=== PATIENT | female | born 1970 | race Caucasian/White ===

== ENCOUNTER 2016-12-03 15:27 | Emergency (ER) | payer MEDICARE, OTHER ==
[2016-12-03 15:51] VITALS: RESP 18
[2016-12-03] MEDS ORDERED: SODIUM CHLORIDE 0.9% 1,000 ML IV ONE (16:21)
--- NOTE | 2016-12-03 16:29 | ED ---
General Adult HPI - General Chief complaint: Upper Respiratory Infection Stated complaint: Chest Pain Time Seen by Provider: 12/03/16 15:58 Source: patient, family, RN notes reviewed Mode of arrival: ambulatory Limitations: no limitations - History of Present Illness Initial comments: Chief complaint and history of present illness a 38-year-old female here with family. The patient reports that she uses medical marijuana for anxiety and help her sleep. She obtained some from a friend which did the opposite effect on her. She was also trying some moonshine sips several times a day 2-3 days ago in order to help her sleep. Her brother reports she has not slept for 3 days. On social media she's asking questions and doing things that are irregular. Her father has long since but she thinks he is currently in the hospital somewhere. She admits that she doesn't know why she is doing that. She is complaining of some chest pressure and productive cough brown in color. Denies fever. No immunizations. Not taking any current medications. - Related Data Home Medications Medication Instructions Recorded Confirmed Naproxen Sodium [Aleve] 220 mg PO Q12H PRN 12/03/16 12/03/16 diphenhydrAMINE HCL [Benadryl] 25 - 50 mg PO Q6H PRN 12/03/16 12/03/16 Allergies Allergy/AdvReac Type Severity Reaction Status Date / Time codeine Allergy Unknown Verified 12/03/16 16:29 Review of Systems ROS Statement: Those systems with pertinent positive or pertinent negative responses have been documented in the HPI. Review of systems. Patient reads lips very well. No headache or visual acuity changes she has a chest pressure but no radiation discomfort productive brown colored cough. Vomited several times anterior muscles of her abdomen from vomiting causes discomfort, chronic loose stool. No neuro deficits. The patient is an she admits hallucinating having thoughts that are irregular. Does not mention suicide or depression. Brother reports she does seem to be unhappy though her 15-year-old daughter is starting to date all systems reviewed past medical problems patient states she is to have hypertension does not take medications for it currently pressure 164/86. Patient will be referred back to a or her family physician for further evaluation in the next week to 2 weeks. She also reports a history of asthma. No other medical problems. ALLERGIES to codeine. Surgeries include , right hand surgery, tonsillectomy and adenoids and soft collar removed. And hysterectomy. Family history prostate and breast cancer. Other members of COPD and CHF. A 1 last time 2 days ago. She does drink alcohol last time 2 days ago. ROS Other: All systems not noted in ROS Statement are negative. Past Medical History Past Medical History: No Reported History History of Any Multi-Drug Resistant Organisms: None Reported Past Surgical History: No Surgical Hx Reported Past Psychological History: Anxiety, Depression, Panic Disorder Smoking Status: Never smoker Past Alcohol Use History: Heavy Past Drug Use History: Marijuana General Exam - General Exam Comments Initial Comments: General: The patient is awake and alert, in no distress, and does not appear acutely ill. Patient has no obvious outward complaints while emergency room but she is here because family reports she's hearing saying and doing things and thinking things that are totally irregular for her. Patient states she obtained some marijuana from a friend. She does have a medical marijuana card in order to help her sleep but intermittently sleepy harder. Vital signs temp 97.6 pulse 102 respiratory rate 18 pulse ox on percent room air blood pressure 164/86. Elevated systolic diastolic noted patient will be followed up by her family physician. Eye: Pupils are equal, round and reactive to light, extra-ocular movements are intact ; there is normal conjunctiva bilaterally. No signs of icterus. Ears, nose, mouth and throat: Evidence of surgery on her soft palate There are moist mucous membranes and no oral lesions. Neck: The neck is supple, there is no tenderness , no meningeal irritation, no stiff neck. Thyroid not enlarged, no anterior cervical lymphadenopathy. Cardiovascular: There is a regular rate and rhythm. No murmur, rub or gallop is appreciated. Respiratory: Lungs are clear to auscultation, respirations are non-labored, breath sounds are equal. No wheezes, stridor, rales, or rhonchi. Gastrointestinal: Soft, non-distended, non-tender abdomen without masses or organomegaly noted. There is no rebound or guarding present. No CVA tenderness. Bowel sounds are unremarkable. Complains of vomiting several times muscle wall discomfort but no rebound or referred pain. Normoactive bowel sounds. Back: There is no tenderness to palpation in the midline. There is no obvious deformity. No rashes noted. Musculoskeletal: Normal ROM, no tenderness, There is no pedal edema. There is no calf tenderness or swelling. Sensation intact. Pulses equal bilaterally 2+. Neurological: CN II-XII intact, There are no obvious motor or sensory deficits. Coordination appears grossly intact. Speech is normal. No focal or lateralizing findings Skin: Skin is warm and dry and no rashes or lesions are noted. Psychiatric: Cooperative, appropriate mood & affect, normal judgment. Family reports she is hallucinating. Making statements concerning her father who has since , asking what hospital he is currently in. Family reports she's never done this before. Limitations: no limitations Course Vital Signs 12/03/16 12/03/16 15:46 20:05 Temperature 97.6 F 97.3 F L Pulse Rate 102 H 66 Respiratory 18 18 Rate Blood Pressure 164/86 130/71 O2 Sat by Pulse 100 97 Oximetry EKG Findings - EKG Comments: EKG Findings:: EKG was done and reviewed at 16 007 showing normal sinus rhythm no acute ST elevation no ectopy no ischemic changes. Rate 90 [place] interval is 134 QRS 78 QT [address] Antonio no old EKG available to compare to. Medical Decision Making - Medical Decision Making Medical decision-making. Patient's white count is elevated at 15,000 hemoglobin 15 hematocrit of 45, potassium 3.0 receiving 30 mEq of Desiree Michael by mouth. BUN 9 creatinine 0.9 the GFR greater than 60. Glucose 106. Urine is clean no signs of infection drug triage positive for marijuana which patient states she has a medical card for. Cardiac enzymes within normal limits. X-ray of the chest was done because of the patient's complaint of chest discomfort and productive cough greenish color. The radiologist's impression is there is no focal airspace opacity, pleural effusion, or pneumothorax seen. Can't axilla size within normal limits. The osseous structures are intact. Impression; no acute cardiopulmonary process. No significant change from prior. As read by Dr. rosas Patient also had CT of the brain done because of acute mental changes. The radiologist's final impression is there is no acute intracranial hemorrhage, mass effect, or midline shift identified. The ventricles and sulci are within normal limits in size. The globes are intact and the visualized sinuses are clear. Impression; no acute intracranial hemorrhage, mass effect or midline shift seen. As read by Dr. rosas Per brother patient has had in his estimation history of depression. Possibility of a bipolar disorder with manic episode at this time. Without thoughts of harming herself was discussed. Patient will have an evaluation by the psychiatric department. I was speaking with the patient concerning her mood swings and she stated to me that she does have a history and diagnosis of bipolar disorder and has been on medications in the past. Currently not taking any medications. She uses the marijuana first mood swings. She does want to speak to a psychiatric nurse. Denying any thoughts of harming herself or anyone else. Admits she's had episodes of depression and manic phases in the past She was evaluated by the psychiatric nurse she spoke to the psychiatrist. At this time the patient be discharged home with medications to help her sleep. She has an the past seen [facility] be advised to follow-up with them for reevaluation and efforts to help her with her bipolar disorder. Patient being discharged to care of her brother - Lab Data Result diagrams: 12/03/16 16:55 12/03/16 16:55 Lab Results 12/03/16 12/03/16 12/03/16 Range/Units 14:05 16:55 16:55 WBC 15.1 H (3.8-10.6) k/uL RBC 5.06 (3.80-5.40) m/uL Hgb 15.3 (11.4-16.0) gm/dL Hct 45.1 (34.0-46.0) % MCV 89.1 (80.0-100.0) fL MCH 30.2 (25.0-35.0) pg MCHC 33.9 (31.0-37.0) g/dL RDW 12.9 (11.5-15.5) % Plt Count 281 (150-450) k/uL Neutrophils % 79 % Lymphocytes % 14 % Monocytes % 5 % Eosinophils % 0 % Basophils % 1 % Neutrophils # 11.9 H (1.3-7.7) k/uL Lymphocytes # 2.1 (1.0-4.8) k/uL Monocytes # 0.8 (0-1.0) k/uL Eosinophils # 0.1 (0-0.7) k/uL Basophils # 0.1 (0-0.2) k/uL Sodium (137-145) mmol/L Potassium (3.5-5.1) mmol/L Chloride (98-107) mmol/L Carbon Dioxide (22-30) mmol/L Anion Gap mmol/L BUN (7-17) mg/dL Creatinine (0.52-1.04) mg/dL Est GFR (MDRD) Af Amer (>60 ml/min/1.73 sqM) Est GFR (MDRD) Non-Af (>60 ml/min/1.73 sqM) Glucose (74-99) mg/dL Calcium (8.4-10.2) mg/dL Total Bilirubin (0.2-1.3) mg/dL AST (14-36) U/L ALT (9-52) U/L Alkaline Phosphatase (38-126) U/L Total Creatine Kinase 181 H (30-135) U/L CK-MB (CK-2) 2.4 (0.0-2.4) ng/mL CK-MB (CK-2) Rel Index 1.3 Troponin I 0.025 (0.000-0.034) ng/mL Total Protein (6.3-8.2) g/dL Albumin (3.5-5.0) g/dL Urine Color Colorless Urine Appearance Clear (Clear) Urine pH 6.5 (5.0-8.0) Ur Specific [place] 1.001 (1.001-1.035) Urine Protein Negative (Negative) Urine Glucose (UA) Negative (Negative) Urine Ketones Negative (Negative) Urine Blood Negative (Negative) Urine Nitrate Negative (Negative) Urine Bilirubin Negative (Negative) Urine Urobilinogen <2.0 (<2.0) mg/dL Ur Leukocyte Esterase Negative (Negative) Urine Opiates Screen Not Detected (NotDetected) Ur Oxycodone Screen Not Detected (NotDetected) Urine Methadone Screen Not Detected (NotDetected) Ur Propoxyphene Screen Not Detected (NotDetected) Ur Barbiturates Screen Not Detected (NotDetected) U Tricyclic Antidepress Not Detected (NotDetected) Ur Phencyclidine Scrn Not Detected (NotDetected) Ur Amphetamines Screen Not Detected (NotDetected) U Methamphetamines Scrn Not Detected (NotDetected) U Benzodiazepines Scrn Not Detected (NotDetected) Urine Cocaine Screen Not Detected (NotDetected) U Marijuana (THC) Screen Detected H (NotDetected) 02/19/17 Range/Units 16:55 WBC (3.8-10.6) k/uL RBC (3.80-5.40) m/uL Hgb (11.4-16.0) gm/dL Hct (34.0-46.0) % MCV (80.0-100.0) fL MCH (25.0-35.0) pg MCHC (31.0-37.0) g/dL RDW (11.5-15.5) % Plt Count (150-450) k/uL Neutrophils % % Lymphocytes % % Monocytes % % Eosinophils % % Basophils % % Neutrophils # (1.3-7.7) k/uL Lymphocytes # (1.0-4.8) k/uL Monocytes # (0-1.0) k/uL Eosinophils # (0-0.7) k/uL Basophils # (0-0.2) k/uL Sodium 145 (137-145) mmol/L Potassium 3.0 L* (3.5-5.1) mmol/L Chloride 106 (98-107) mmol/L Carbon Dioxide 25 (22-30) mmol/L Anion Gap 14 mmol/L BUN 9 (7-17) mg/dL Creatinine 0.90 (0.52-1.04) mg/dL Est GFR (MDRD) Af Amer >60 (>60 ml/min/1.73 sqM) Est GFR (MDRD) Non-Af >60 (>60 ml/min/1.73 sqM) Glucose 106 H (74-99) mg/dL Calcium 9.2 (8.4-10.2) mg/dL Total Bilirubin 0.7 (0.2-1.3) mg/dL AST 23 (14-36) U/L ALT 31 (9-52) U/L Alkaline Phosphatase 77 (38-126) U/L Total Creatine Kinase (30-135) U/L CK-MB (CK-2) (0.0-2.4) ng/mL CK-MB (CK-2) Rel Index Troponin I (0.000-0.034) ng/mL Total Protein 7.5 (6.3-8.2) g/dL Albumin 4.5 (3.5-5.0) g/dL Urine Color Urine Appearance (Clear) Urine pH (5.0-8.0) Ur Specific [place] (1.001-1.035) Urine Protein (Negative) Urine Glucose (UA) (Negative) Urine Ketones (Negative) Urine Blood (Negative) Urine Nitrate (Negative) Urine Bilirubin (Negative) Urine Urobilinogen (<2.0) mg/dL Ur Leukocyte Esterase (Negative) Urine Opiates Screen (NotDetected) Ur Oxycodone Screen (NotDetected) Urine Methadone Screen (NotDetected) Ur Propoxyphene Screen (NotDetected) Ur Barbiturates Screen (NotDetected) U Tricyclic Antidepress (NotDetected) Ur Phencyclidine Scrn (NotDetected) Ur Amphetamines Screen (NotDetected) U Methamphetamines Scrn (NotDetected) U Benzodiazepines Scrn (NotDetected) Urine Cocaine Screen (NotDetected) U Marijuana (THC) Screen (NotDetected) Disposition Clinical Impression: Bipolar 1 disorder Disposition: HOME SELF-CARE Condition: Fair Instructions: Bipolar Disorder (ED) Additional Instructions: Used a sleep medication provided. Follow-up with family physician and community mental health for further evaluation. Return emergency room as needed Time of Disposition: 21:30
[2016-12-03 17:06] LABS: Basophils # (A) 0.1 k/uL (0-0.2); Basophils % (A) 1 %; CH 30.9; CHCM 34.9; Eosinophils # (A) 0.1 k/uL (0-0.7); Eosinophils % (A) 0 %; HCT 45.1 % (34.0-46.0); HDW 2.49; HGB 15.3 gm/dL (11.4-16.0); Luc # (Auto) 0.17; Luc % (Auto) 1; Lymphocytes # (A) 2.1 k/uL (1.0-4.8); Lymphocytes % (A) 14 %; MCH 30.2 pg (25.0-35.0); MCHC 33.9 g/dL (31.0-37.0); MCV 89.1 fL (80.0-100.0); Mean Platelet Volume 7.4; Monocytes # (A) 0.8 k/uL (0-1.0); Monocytes % (A) 5 %; Neutrophils # (A) 11.9 k/uL (1.3-7.7); Neutrophils % (A) 79 %; RBC 5.06 m/uL (3.80-5.40); RDW 12.9 % (11.5-15.5); WBC 15.1 k/uL (3.8-10.6)
[2016-12-03 17:07] LABS: Appearance,Urine Clear (Clear); Bilirubin,Urine Negative (Negative); Glucose,Urine (UA) Negative (Negative); Ketones,Urine Negative (Negative); Leukocyte Esterase,Urine Negative (Negative); Nitrite,Urine Negative (Negative); PH, Urine 6.5 (5.0-8.0); Protein,Urine Negative (Negative); Specific Gravity,Urine 1.001 (1.001-1.035); UA Billing (MACRO vs. MICRO) CHEM; Urobilinogen,Urine <2.0 mg/dL (<2.0)
[2016-12-03 17:16] LABS: ALT 31 U/L (9-52); AST 23 U/L (14-36); Alkaline Phosphatase 77 U/L (38-126); Anion Gap 14 mmol/L; Blood Urea Nitrogen 9 mg/dL (7-17); Calcium 9.2 mg/dL (8.4-10.2); Carbon Dioxide 25 mmol/L (22-30); Chloride 106 mmol/L (98-107); Glucose 106 mg/dL (74-99); Non-African American GFR(MDRD) >60 (>60 ml/min/1.73 sqM); Sodium 145 mmol/L (137-145); Total Bilirubin 0.7 mg/dL (0.2-1.3); Total Protein 7.5 g/dL (6.3-8.2)
--- NOTE | 2016-12-03 17:37 | XR ---
EXAMINATION TYPE: XR chest 2V DATE OF EXAM: 12/03/2016 5:29 PM COMPARISON: Chest x-ray July 10, 2013. HISTORY: Altered mental status and weakness. TECHNIQUE: Frontal and lateral views of the chest are obtained. FINDINGS: There is no focal air space opacity, pleural effusion, or pneumothorax seen. The cardiac silhouette size is within normal limits. The osseous structures are intact. IMPRESSION: No acute cardiopulmonary process. No significant change from prior.
[2016-12-03] MEDS ORDERED: POTASSIUM CHLORIDE ER 10 MEQ TAB.ER.PRT PO STA (17:38)
--- NOTE | 2016-12-03 17:38 | CT ---
EXAMINATION TYPE: CT brain wo con DATE OF EXAM: 12/03/2016 5:20 PM COMPARISON: NONE HISTORY: Acute mental changes. CT DLP: 995.50 mGycm. Automated Exposure Control for Dose Reduction was Utilized. TECHNIQUE: CT scan of the head is performed without contrast. FINDINGS: There is no acute intracranial hemorrhage, mass effect, or midline shift identified. The ventricles and sulci are within normal limits in size. The globes are intact and the visualized sin uses are clear. IMPRESSION: No acute intracranial hemorrhage, mass effect, or midline shift is seen.
[2016-12-03 17:42] LABS: Creatine Kinase MB 2.4 ng/mL (0.0-2.4); Troponin I 0.025 ng/mL (0.000-0.034)
[2016-12-03 20:06] VITALS: PULSE 66
[2016-12-03] MEDS ORDERED: ZOLPIDEM 5 MG TAB PO SCH (21:30)
[2016-12-03 21:34] VITALS: BP 138/77; TEMP 99
== END 2016-12-03 21:34 | disposition home or self-care (01) ==
LOC: EC 15:27
DX: F31.9 Bipolar disorder, unspecified (principal); F41.9 Anxiety disorder, unspecified; R11.10 Vomiting, unspecified; F12.90 Cannabis use, unspecified, uncomplicated; Z88.5 Allergy status to narcotic agent
CPT/HCPCS: 36415; 70450; 71020; 80053; 80306; 81003; 82075; 82550; 82553; 84484; 85025; 87086; 93005; 96360; 96361; 99284

== ENCOUNTER 2016-12-04 16:10 | Inpatient (IN) | payer MEDICAID, MEDICARE, OTHER ==
--- NOTE | 2016-12-04 17:08 | ED ---
Psych HPI - General Source: family, RN notes reviewed Mode of arrival: ambulatory <Keke Wolfe - Last Filed: 12/04/16 19:47> <Jordy Antonio - Last Filed: 12/04/16 22:34> - General Chief Complaint: Psychiatric Symptoms Stated Complaint: Mental Health Time Seen by Provider: 12/04/16 16:46 - History of Present Illness Initial Comments: 46-year-old female presents to the emergency department with a chief complaint of delusions. The patient has been acting appropriately at home. She's been seen in hearing and feeling as if people are breaking into her house. She's become aggressive and punching and hitting [place]. When asked if she suicidal she will use her hand side to side and says yes. Patient states that she is very scared because her ex-boyfriend has recently been released from half-way is causing her increased panic attacks. Patient states she is suffering from bipolar disorder. Patient states uses marijuana to help with her symptoms. Patient states she was concerned due to the continued symptoms and the fear so she thought that she should be evaluated.Patient denies any recent fever, chills , shortness of breath, chest pain, back pain, abdominal pain, nausea vomiting, numbness or tingling, dysuria or hematuria, constipation or diarrhea, headaches or visual changes, or any other current symptoms. (Keke Wolfe) - Related Data Home Medications Medication Instructions Recorded Confirmed Naproxen Sodium [Aleve] 220 mg PO Q12H PRN 12/03/16 12/04/16 diphenhydrAMINE HCL [Benadryl] 25 - 50 mg PO Q6H PRN 12/03/16 12/04/16 Allergies Allergy/AdvReac Type Severity Reaction Status Date / Time codeine Allergy Unknown Verified 12/04/16 16:38 Review of Systems ROS Other: All systems not noted in ROS Statement are negative. <Keke Wolfe - Last Filed: 12/04/16 19:47> ROS Other: All systems not noted in ROS Statement are negative. <Jordy Antonio - Last Filed: 12/04/16 22:34> ROS Statement: Those systems with pertinent positive or pertinent negative responses have been documented in the HPI. Past Medical History Past Medical History: No Reported History Additional Past Medical History / Comment(s): hearing impaired History of Any Multi-Drug Resistant Organisms: None Reported Past Surgical History: No Surgical Hx Reported Past Psychological History: Anxiety, Depression, Panic Disorder Smoking Status: Never smoker Past Alcohol Use History: Heavy Past Drug Use History: Marijuana <Keke Wolfe - Last Filed: 12/04/16 19:47> General Exam Limitations: language barrier <Keke Wolfe - Last Filed: 12/04/16 19:47> <Jordy Antonio - Last Filed: 12/04/16 22:34> - General Exam Comments Initial Comments: General: The patient is awake and alert, in no distress, and does not appear acutely ill. Eye: Pupils are equal, round and reactive to light, extra-ocular movements are intact; there is normal conjunctiva bilaterally. No signs of icterus. Ears, nose, mouth and throat: There are moist mucous membranes and no oral lesions. Neck: The neck is supple, there is no tenderness. Cardiovascular: There is a regular rate and rhythm. No murmur, rub or gallop is appreciated. Respiratory: Lungs are clear to auscultation, respirations are non-labored, breath sounds are equal. No wheezes, stridor, rales, or rhonchi. Gastrointestinal: Soft, non-distended, non-tender abdomen without masses or organomegaly noted. There is no rebound or guarding present. No CVA tenderness. Bowel sounds are unremarkable. Back: There is no tenderness to palpation in the midline. There is no obvious deformity. No rashes noted. Musculoskeletal: Normal ROM, no tenderness, There is no pedal edema. There is no calf tenderness or swelling. Sensation intact. Pulses equal bilaterally 2+. Neurological: CN II-XII intact, There are no obvious motor or sensory deficits. Coordination appears grossly intact. Speech is normal. Skin: Skin is warm and dry and no rashes or lesions are noted. Psychiatric: Cooperative suicidal ideation no plan. No Homicidal ideations (Keke Wolfe) Course <Keke Wolfe - Last Filed: 12/04/16 19:47> <Jordy Antonio - Last Filed: 12/04/16 22:34> Vital Signs 12/04/16 12/04/16 12/04/16 16:23 17:13 18:42 Temperature 99.5 F 98.1 F Pulse Rate 113 H 98 94 Respiratory 20 18 18 Rate Blood Pressure 192/90 157/82 169/83 O2 Sat by Pulse 99 96 94 L Oximetry - Reevaluation(s) Reevaluation #1: 12/04/16 19:48 This case will be signed out to DR. Antonio. (Keke Wolfe) Medical Decision Making <Kkee Wolfe - Last Filed: 12/04/16 19:47> <Jordy Antonio - Last Filed: 12/04/16 22:34> - Medical Decision Making 46-year-old female presents emergency department with a chief complaint of suicidal ideation history of bipolar. This time the patient does not appear to be suffering from any acute medical emergencies. The patient is 28 reevaluated by psychiatry. (Keke Wolfe) Medical decision-making. The patient was in emergency room yesterday admitting to a 3 day manic episode. Requesting only medication to help her sleep. Brother reports she went home took the Ambien provided. 3 hours when his since been up since then. The patient has been throwing things around the house punching [place]. In emergency room the patient had an episode where she ran to the emergency room screaming better but he was trying to kill her the FBI was after her. The patient is not taking medication as she had been prescribed years ago she uses only marijuana. Repeat test today was positive for marijuana no alcohol. Her brother filled out a petition. The patient is being evaluated by the psychiatric nurse. Patient presenting as Bipolar manic. The patient was evaluated by psychiatric nurse. She is signed in voluntarily to go to [address]. Patient received 2 mg of Ativan to help her relax. Dr. Antonio (Jordy Antonio) - Lab Data Lab Results 12/04/16 Range/Units 16:35 Urine Opiates Screen Not Detected (NotDetected) Ur Oxycodone Screen Not Detected (NotDetected) Urine Methadone Screen Not Detected (NotDetected) Ur Propoxyphene Screen Not Detected (NotDetected) Ur Barbiturates Screen Not Detected (NotDetected) U Tricyclic Antidepress Not Detected (NotDetected) Ur Phencyclidine Scrn Not Detected (NotDetected) Ur Amphetamines Screen Not Detected (NotDetected) U Methamphetamines Scrn Not Detected (NotDetected) U Benzodiazepines Scrn Not Detected (NotDetected) Urine Cocaine Screen Not Detected (NotDetected) U Marijuana (THC) Screen Detected H (NotDetected) Disposition <Keke Wolfe - Last Filed: 12/04/16 19:47> <Jordy Antonio - Last Filed: 12/04/16 22:34> Clinical Impression: Bipolar disorder with psychotic features Disposition: TRANSFER TO PSYCH HOSP/UNIT Condition: Serious
[2016-12-04] MEDS ORDERED: LORazepam 2 MG/ML SYRINGE IM STA (21:23)
[2016-12-05] MEDS ORDERED: ACETAMINOPHEN TAB 325 MG TAB PO PRN (01:03)
[2016-12-05] MEDS ORDERED: ZIPRASIDONE 20 MG VIAL IM PRN (01:03)
[2016-12-05] MEDS ORDERED: MAG HYDROX/AL HYDROX/SIMETH 30 ML CUP PO PRN (01:03)
[2016-12-05] MEDS ORDERED: MAGNESIUM HYDROXIDE 2,400 MG/10 ML CUP PO PRN (01:03)
[2016-12-05] MEDS ORDERED: LORazepam 1 MG TAB PO PRN (01:14)
[2016-12-05] MEDS ORDERED: LORazepam 2 MG/ML SYRINGE IM PRN (01:15)
[2016-12-05 09:30] LABS: Basophils % (A) 0 %; CH 30.6; CHCM 33.7; Eosinophils % (A) 0 %; HCT 47.6 % (34.0-46.0); HDW 2.46; HGB 15.4 gm/dL (11.4-16.0); Luc # (Auto) 0.26; Luc % (Auto) 2; Lymphocytes # (A) 1.7 k/uL (1.0-4.8); Lymphocytes % (A) 13 %; MCH 29.5 pg (25.0-35.0); MCHC 32.4 g/dL (31.0-37.0); MCV 91.1 fL (80.0-100.0); Mean Platelet Volume 6.8; Monocytes # (A) 0.7 k/uL (0-1.0); Monocytes % (A) 5 %; Neutrophils # (A) 10.7 k/uL (1.3-7.7); Neutrophils % (A) 80 %; RBC 5.23 m/uL (3.80-5.40); RDW 13.3 % (11.5-15.5); WBC 13.4 k/uL (3.8-10.6); WBC (Perox) 13.74
[2016-12-05 09:55] LABS: ALT 44 U/L (9-52); AST 34 U/L (14-36); Alkaline Phosphatase 79 U/L (38-126); Anion Gap 15 mmol/L; Blood Urea Nitrogen 11 mg/dL (7-17); Calcium 9.7 mg/dL (8.4-10.2); Carbon Dioxide 26 mmol/L (22-30); Chloride 106 mmol/L (98-107); Glucose 135 mg/dL (74-99); Non-African American GFR(MDRD) 59 (>60 ml/min/1.73 sqM); Sodium 147 mmol/L (137-145); Total Bilirubin 0.9 mg/dL (0.2-1.3)
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
--- NOTE | 2016-12-05 20:21 | HP ---
DATE OF ADMISSION: 12/04/2016 CHIEF COMPLAINT: Acute depression. HISTORY OF PRESENT ILLNESS: This is a 46-year-old female who has been deaf since age of 1 years presents to the hospital with worsening depression, alcohol abuse. Patient denying chest pain, shortness breath, nausea, vomiting, abdominal pain, dizziness, lightheadedness, or blurry vision. ALLERGIES: CODEINE UNKNOWN ALLERGIC REACTION. REVIEW OF SYSTEMS: All 14 systems reviewed and negative as above. PAST MEDICAL HISTORY: Significant for: 1. Hypertension. The patient to quit taking medication as her blood pressure is back to normal. 2. Chronic obstructive pulmonary disease. 3. Bipolar disorder. PAST SURGICAL HISTORY: Positive for: 1. Adenoidectomy. 2. Right hand tumor removal. 3. . 4. Hysterectomy. FAMILY HISTORY: Father of natural causes. Mother is alive with chronic obstructive pulmonary disease. SOCIAL HISTORY: Patient said that she has been sober for a long time and returned to drink this week where she was drinking a gallon of liquor and Elisa. Denied tobacco and said that she uses medical marijuana. PHYSICAL EXAMINATION: VITAL SIGNS: Reviewed and stable. HEENT: Atraumatic, normocephalic PERRLA. NECK: Supple, no masses. No thyromegaly. LUNGS: Clear to auscultation bilaterally. HEART: Normal S1, S2. ABDOMEN: Soft, no tenderness, positive bowel sounds in all 4 quadrants. L extremity no edema. PSYCH: Alert, and oriented x3. NEUROLOGICAL: Positive for deafness bilaterally and patient reads lips and very hard of hearing. Cranial nerves otherwise no focal deficits. SKIN: No new rash. Imaging and labs: Reviewed. ASSESSMENT AND PLAN: 1. Alcoholism. Will continue counseling during this hospital stay. 2. Bipolar disorder. Per your recommendation. 3. Hypertension, seems to be controlled. We will monitor, consider blood pressure medication based on the reading. 4. Asthma and chronic obstructive pulmonary disease. Will continue with albuterol as needed during this hospital stay.
[2016-12-05] MEDS ORDERED: risperiDONE ODT 1 MG TAB PO SCH (21:00)
[2016-12-06] MEDS ORDERED: risperiDONE ODT 2 MG TAB PO SCH ×2 (09:00→21:00)
[2016-12-06] MEDS ORDERED: ONDANSETRON 4 MG TAB PO PRN (12:51)
--- NOTE | 2016-12-06 13:10 | P.PN ---
Subjective Principal diagnosis: Interval history: Patient endorses high anxiety ,talked about her extensive history of alcohol use and claimed that she was clean till last week "I WAS NOT DRINKING WHISKEY JUST 70% BETHANY",slept better last night , still having racing thoughts ,paranoia and "I HAVE FEELING THAT SOMETHING BAD WILL HAPPEN TO ME",reports some side-effects from medications"I AM VERY TIRED" PER NURSING STAFF: Patient had emesis last night,not participating in groups , withdrawn ,no interaction with peers ,URINE ANALYSIS:PENDING VITALS :WNL Mental status exam: She is alert and cooperative with the interview. Her speech is fluent, not rapid or pressured. She describes her mood "TIRED AND ANXIOUS". She denies any thoughts of harm to self others. She does not report any hallucinations she reports paranoid thoughts. She does not show any current agitation. Plan: Change Risperdal to 4mg HS ,add Neurontin for anxiety ,Zofran PRN , monitor vitals ,encourage groups participation Objective - Vital Signs Vital signs: Vital Signs Temp 97.4 F L 12/06/16 06:22 Pulse 68 12/06/16 06:22 Resp 16 12/06/16 06:22 BP 130/68 12/06/16 06:22 Pulse Ox 95 12/04/16 23:15 - Labs CBC & Chem 7: 12/05/16 09:01 12/05/16 09:01
[2016-12-06 14:07] LABS: Amorphous Sediment,Urine Rare /hpf; Appearance,Urine Cloudy (Clear); Bacteria,Urine Rare /hpf; Bilirubin,Urine Negative (Negative); Glucose,Urine (UA) Negative (Negative); Ketones,Urine Trace (Negative); Leukocyte Esterase,Urine Small (Negative); Mucus,Urine Many /hpf; Nitrite,Urine Negative (Negative); Particle Count 22295; Protein,Urine 1+ (Negative); RBC,Urine 10 /hpf (0-5); Specific Gravity,Urine 1.027 (1.001-1.035); Squamous Epithelial Cell,Urine 5 /hpf (0-4); UA Billing (MACRO vs. MICRO) MICRO; Urobilinogen,Urine <2.0 mg/dL (<2.0); WBC,Urine 2 /hpf (0-5)
[2016-12-06] MEDS: GABAPENTIN 100 MG CAP PO SCH ×2 (16:03→21:31)
[2016-12-07] MEDS: GABAPENTIN 100 MG CAP PO SCH ×3 (09:41→21:50)
[2016-12-07] MEDS: THIAMINE 100 MG TAB PO SCH (11:54)
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
[2016-12-07] MEDS ORDERED: risperiDONE ODT 1 MG TAB PO SCH (21:00)
[2016-12-08 06:44] VITALS: BP 125/62; PULSE 68; RESP 18; TEMP 97.6
[2016-12-08] MEDS: GABAPENTIN 100 MG CAP PO SCH (08:11)
[2016-12-08] MEDS: THIAMINE 100 MG TAB PO SCH (11:58)
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
--- NOTE | 2016-12-15 12:35 | ED ---
Medical Decision Making - Medical Decision Making Addendum; patient was put in restraints. [id number] encounter. Patient was in danger to herself and to others. The reaction to the intervention patient was uncooperative hostile belligerent, aggressive, combative and restless. The patient's medical and behavioral condition was confused agitated and paranoid. There was need to continue restraints. [id number] evaluation started at . [id number] a evaluation was timed at 2029. Dr. Antonio - Lab Data Result diagrams: 12/05/16 09:01 12/05/16 09:01 Lab Results 12/04/16 Range/Units 16:35 Urine Opiates Screen Not Detected (NotDetected) Ur Oxycodone Screen Not Detected (NotDetected) Urine Methadone Screen Not Detected (NotDetected) Ur Propoxyphene Screen Not Detected (NotDetected) Ur Barbiturates Screen Not Detected (NotDetected) U Tricyclic Antidepress Not Detected (NotDetected) Ur Phencyclidine Scrn Not Detected (NotDetected) Ur Amphetamines Screen Not Detected (NotDetected) U Methamphetamines Scrn Not Detected (NotDetected) U Benzodiazepines Scrn Not Detected (NotDetected) Urine Cocaine Screen Not Detected (NotDetected) U Marijuana (THC) Screen Detected H (NotDetected) Disposition Clinical Impression: Bipolar disorder with psychotic features Disposition: TRANSFER TO PSYCH HOSP/UNIT Condition: Serious
== END 2016-12-08 13:12 | disposition home or self-care (01) | DRG 882 ==
LOC: EC 16:10 → 3MHU 22:25
PROVIDERS: ADMIT Psychiatry & Neurology Psychiatry; ATTEND Psychiatry & Neurology Psychiatry
DX: F43.10 Post-traumatic stress disorder, unspecified (principal); R45.851 Suicidal ideations; I10 Essential (primary) hypertension; F31.81 Bipolar II disorder; F10.20 Alcohol dependence, uncomplicated; F12.90 Cannabis use, unspecified, uncomplicated; F41.0 Panic disorder [episodic paroxysmal anxiety]; G89.29 Other chronic pain; H91.90 Unspecified hearing loss, unspecified ear; J44.9 Chronic obstructive pulmonary disease, unspecified; J45.909 Unspecified asthma, uncomplicated; Z81.8 Family history of other mental and behavioral disorders; Z87.891 Personal history of nicotine dependence; Z91.410 Personal history of adult physical and sexual abuse; Z79.899 Other long term (current) drug therapy
CPT/HCPCS: 80053; 80306; 81001; 82075; 84443; 85025; 96372; 99285

== ENCOUNTER → 2018-05-27 | Outpatient (CLI) | payer MEDICARE, OTHER ==
[2018-05-27 16:28] LABS: Basophils % (A) 0 %; Eosinophils # (A) 0.1 k/uL (0-0.7); Eosinophils % (A) 1 %; HCT 41.8 % (34.0-46.0); HGB 13.7 gm/dL (11.4-16.0); Lymphocytes # (A) 1.8 k/uL (1.0-4.8); Lymphocytes % (A) 19 %; MCH 28.9 pg (25.0-35.0); MCHC 32.8 g/dL (31.0-37.0); MCV 88.2 fL (80.0-100.0); Mean Platelet Volume 7.2; Monocytes # (A) 0.6 k/uL (0-1.0); Monocytes % (A) 6 %; Neutrophils # (A) 7.3 k/uL (1.3-7.7); Neutrophils % (A) 73 %; Platelet Count 277 k/uL (150-450); RBC 4.74 m/uL (3.80-5.40); RDW 13.2 % (11.5-15.5); WBC 9.9 k/uL (3.8-10.6)
[2018-05-27 16:38] LABS: ALT 31 U/L (9-52); AST 17 U/L (14-36); Albumin 4.5 g/dL (3.5-5.0); Alkaline Phosphatase 65 U/L (38-126); Anion Gap 8 mmol/L; Blood Urea Nitrogen 10 mg/dL (7-17); Calcium 9.9 mg/dL (8.4-10.2); Carbon Dioxide 26 mmol/L (22-30); Chloride 110 mmol/L (98-107); Cholesterol 234 mg/dL (<200); Glucose 100 mg/dL (74-99); HDL Cholesterol 48 mg/dL (40-60); LDL Cholesterol,Calculated 150 mg/dL (0-99); Potassium 3.8 mmol/L (3.5-5.1); Sodium 144 mmol/L (137-145); Total Bilirubin 0.7 mg/dL (0.2-1.3); Total Protein 7.1 g/dL (6.3-8.2); Triglycerides 180 mg/dL (<150)
--- NOTE | 2018-05-27 16:42 | XR ---
EXAMINATION TYPE: XR shoulder complete RT DATE OF EXAM: 05/27/2018 COMPARISON: NONE HISTORY: Shoulder pain TECHNIQUE: 3 views FINDINGS: There is some spurring at the AC joint. I see no fracture nor dislocation. Humeral head is intact. IMPRESSION: No acute bony abnormality.
[2018-05-27 16:53] LABS: T4, Free (Free Thyroxine) 1.02 ng/dL (0.78-2.19)
[2018-05-27 19:59] LABS: Erythrocyte Sedimentation Rate 14 mm/hr (0-20)
[2018-05-28 02:10] LABS: Rheumatoid Factor 6 IU/mL (0-15)
[2018-05-28 09:21] LABS: HLA B27 NEGATIVE
== END | disposition home or self-care (01) ==
LOC: LABWHC1 15:59
PROVIDERS: ATTEND Family Medicine
DX: M25.511 Pain in right shoulder (principal); Z00.00 Encounter for general adult medical examination without abnormal findings; Z79.899 Other long term (current) drug therapy
CPT/HCPCS: 36415; 80053; 80061; 84439; 84443; 85025; 85652; 86038; 86431; 86780; 86812

== ENCOUNTER → 2018-06-13 | Outpatient (CLI) | payer MEDICARE, OTHER ==
--- NOTE | 2018-06-13 12:06 | XR ---
EXAMINATION TYPE: XR cervical spine comp DATE OF EXAM: 06/13/2018 CLINICAL HISTORY: pain COMPARISON: NONE TECHNIQUE: Frontal, lateral, oblique, swimmers, and open mouth view of the cervical spine are obtaine d. FINDINGS: The cervical spine is visualized in its entirety from C1 thru the top of T1 level. It is s atisfactory in alignment without evidence of acute fracture or dislocation. The pre-vertebral soft t issue appears within normal limits. Moderate degenerative disc space narrowing and spondylosis extend ing from C3-4 through C6-7. The C1-C2 articulation is unremarkable on the open mouth view. The obliq ue images are within normal limits. IMPRESSION: No acute fracture or dislocation is seen in the cervical spine.ICD 10 NO FRACTURE, INITI AL EVALUATION
== END ==
LOC: RADXRMAIN 10:52
PROVIDERS: ATTEND Family Medicine
DX: M54.2 Cervicalgia (principal)
CPT/HCPCS: 72050

== ENCOUNTER → 2018-08-16 | Outpatient (CLI) | payer MEDICARE, OTHER ==
--- NOTE | 2018-08-19 13:31 | MR ---
EXAMINATION TYPE: MR cervical spine wo con DATE OF EXAM: 08/16/2018 COMPARISON: Plain film 06/13/2018 HISTORY: CERVICALGIA, NUMBNESS RT ARM AND FINGERS, XRAYS IN PACS TECHNIQUE: Multiplanar, multisequence images of the cervical spine were acquired. C2-C3: No evidence for degenerative disc disease. No disc bulge/herniation or protrusion. No Canal stenosis. Foramina are patent bilaterally. C3-C4: Posterior extension endplate disc complex causes mild anterior mass effect on the thecal sac. No significant central stenosis or foraminal encroachment. C4-C5: Hypertrophic change is present causing some mild bilateral foraminal encroachment, no signific ant central stenosis despite posterior extension endplate disc complex causing mild anterior mass eff ect on the thecal sac. C5-C6: Bilateral foraminal encroachment is present, posterior extension of endplate disc complex resu lts in minimal anterior mass effect on the thecal sac. C6-C7: Posterior extension of endplate disc complex causes mild anterior mass effect on the thecal sa c, hypertrophic changes results in bilateral foraminal encroachment. C7-T1: No evidence for degenerative disc disease. No disc bulge/herniation or protrusion. No Canal stenosis. Foramina are patent bilaterally. Cervical segments are intact. Cervical vertebral bodies show preserved height. There is normal alignm ent. Cervical spinal cord is of normal signal. Craniovertebral junction relationships are within no rmal limits. There is multilevel spondylosis, endplate discogenic marrow signal change and associate d loss of disc height and signal at intervertebral levels. IMPRESSION: Degenerative disc disease as described.
== END | disposition home or self-care (01) ==
LOC: RADMRIMAIN 12:43
PROVIDERS: ATTEND Family Medicine
DX: M50.30 Other cervical disc degeneration, unspecified cervical region (principal)
CPT/HCPCS: 72141

== ENCOUNTER → 2021-03-10 | Outpatient (CLI) | payer MEDICARE, OTHER ==
--- NOTE | 2021-03-11 07:45 | MM ---
Reason for exam: screening (asymptomatic). Last mammogram was performed 10 years and 8 months ago. History: Patient had first child at age 30. Family history of breast cancer in maternal grandmother and breast cancer in maternal aunt. Took hormonal contraceptives for 10 years beginning at age 18. Physical Findings: A clinical breast exam by your physician is recommended on an annual basis and results should be correlated with mammographic findings. MG Screening Mammo w CAD Bilateral CC and MLO view(s) were taken. Prior study comparison: July 06, 2010, bilateral digital screening mammogram. January 06, 2009, bilateral diagnostic digital mammog. No significant changes when compared with prior studies. ASSESSMENT: Benign, BI-RAD 2 RECOMMENDATION: Routine screening mammogram of both breasts in 1 year.
== END | disposition home or self-care (01) ==
LOC: RADMAMWWP 09:43
PROVIDERS: ATTEND Family Medicine
DX: Z12.31 Encounter for screening mammogram for malignant neoplasm of breast (principal); Z80.3 Family history of malignant neoplasm of breast
CPT/HCPCS: 77067

== ENCOUNTER 2025-04-24 22:45 | Emergency (ER) | payer MEDICARE, OTHER ==
[2025-04-24 22:53] VITALS: TEMP 98.9
--- NOTE | 2025-04-24 23:05 | ED ---
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 Witnessed: no Place Fall Occurred: street Loss of Consciousness: none Prolonged Down Time?: no Symptoms Prior to Fall: none Location - Extremities: Right: Shoulder (Unable to abduct arm), Elbow (Abrasion) Severity scale (1-10): 7 Context: tripped/slipped Associated Symptoms: denies <Raudel Machado - Last Filed: 04/25/25 01:47> <Jes[address] - Last Filed: 04/25/25 07:25> - General Chief Complaint: Fall Stated Complaint: fall Time Seen by Provider: 04/24/25 22:57 - Related Data Home Medications Medication Instructions Recorded Confirmed Naproxen Sodium [Aleve] 220 mg PO Q12H PRN 12/03/16 12/04/16 Previous Rx's Medication Instructions Recorded Gabapentin [Neurontin] 200 mg PO TID 30 Days cap 12/08/16 Thiamine [Vitamin B-1] 100 mg PO DAILY@1200 30 Days tab 12/08/16 risperiDONE ODT [RisperDAL M-TAB] 3 mg PO HS 30 Days tab 12/08/16 Ibuprofen [Motrin] 800 mg PO Q8HR PRN #30 tab 04/24/25 Lidocaine 4% Patch 1 patch TOPICAL Q24H PRN #10 patch 04/24/25 Allergies Allergy/AdvReac Type Severity Reaction Status Date / Time codeine Allergy Unknown Verified 04/24/25 22:53 Review of Systems ROS Other: All systems not noted in ROS Statement are negative. <Raudel Machado - Last Filed: 04/25/25 01:47> ROS Other: All systems not noted in ROS Statement are negative. <Jesús Way - Last Filed: 04/25/25 07:25> ROS Statement: Those systems with pertinent positive or pertinent negative responses have been documented in the HPI. Past Medical History Past Medical History: No Reported History Additional Past Medical History / Comment(s): hearing impaired History of Any Multi-Drug Resistant Organisms: None Reported Past Surgical History: No Surgical Hx Reported Past Psychological History: Anxiety, Depression, Panic Disorder Smoking Status: Former smoker Past Alcohol Use History: Heavy Past Drug Use History: Marijuana <Raudel Machado - Ra Filed: 04/25/25 01:47> General Exam Limitations: no limitations General appearance: alert, in no apparent distress Head exam: Present: atraumatic, normocephalic, normal inspection Eye exam: Present: normal appearance, PERRL, EOMI. Absent: scleral icterus, conjunctival injection, periorbital swelling ENT exam: Present: normal exam, mucous membranes moist Neck exam: Present: normal inspection. Absent: tenderness, meningismus, lymphadenopathy Respiratory exam: Present: normal lung sounds bilaterally. Absent: respiratory distress, wheezes, rales, rhonchi, stridor Cardiovascular Exam: Present: regular rate, normal rhythm, normal heart sounds. Absent: systolic murmur, diastolic murmur, rubs, gallop, clicks GI/Abdominal exam: Present: soft, normal bowel sounds. Absent: distended, tenderness, guarding, rebound, rigid Extremities exam: Present: tenderness (Positive right lateral shoulder tenderness.), normal capillary refill, other (Patient notes some subjective paresthesia in right 3rd and 4th digits. Otherwise distal neurovascular motor function intact. Radial pulse +2, capillary refill less than 2 seconds. Negative wrist, forearm, elbow, humerus TTP, crepitus, deformity. Shallow abrasion/road rash noted on right elbow). Absent: full ROM (Patient unable to abduct right arm due to shoulder pain), pedal edema, joint swelling, calf tenderness Back exam: Present: normal inspection Neurological exam: Present: alert, oriented X3, CN II-XII intact Psychiatric exam: Present: normal affect, normal mood Skin exam: Present: warm, dry, intact, normal color. Absent: rash <Raudel Machado - Ra Filed: 04/25/25 01:47> Course Vital Signs 04/24/25 04/25/25 04/25/25 22:48 00:05 00:10 Temperature 98.9 F Pulse Rate 65 80 99 Respiratory 18 16 18 Rate Blood Pressure 146/86 173/90 203/100 O2 Sat by Pulse 99 100 98 Oximetry 04/25/25 04/25/25 04/25/25 00:15 00:20 00:25 Temperature Pulse Rate 86 69 70 Respiratory 14 18 14 Rate Blood Pressure 180/95 153/114 165/88 O2 Sat by Pulse 98 97 96 Oximetry 04/25/25 04/25/25 04/25/25 00:30 00:35 00:40 Temperature Pulse Rate 79 76 94 Respiratory 16 18 16 Rate Blood Pressure 153/101 158/89 201/96 O2 Sat by Pulse 97 100 100 Oximetry 04/25/25 04/25/25 04/25/25 00:45 00:50 00:55 Temperature Pulse Rate 79 64 71 Respiratory 18 14 16 Rate Blood Pressure 161/84 162/92 151/87 O2 Sat by Pulse 97 98 98 Oximetry 04/25/25 04/25/25 04/25/25 01:00 01:05 01:20 Temperature Pulse Rate 65 75 72 Respiratory 16 18 18 Rate Blood Pressure 161/86 157/83 168/82 O2 Sat by Pulse 98 96 100 Oximetry 04/25/25 04/25/25 04/25/25 01:35 01:50 02:05 Temperature Pulse Rate 60 64 65 Respiratory 16 18 18 Rate Blood Pressure 145/77 149/81 134/69 O2 Sat by Pulse 98 96 99 Oximetry Procedures - Orthopedic Joint Reduction Joint #1 Consent Obtained: verbal consent Side: right Joint Reduction Location: shoulder Analgesia: procedural sedation Shoulder Technique Used (if applicable): traction/counter-traction Post-Reduction Neuro Exam: intact Post-Reduction Vascular Exam: intact Post Reduction X-Ray Obtained: Yes Post Reduction X-Ray Results: reduced Splint Applied: Yes (Sling) Patient Tolerated Procedure: well, no complications <Raudel Machado - Last Filed: 04/25/25 01:47> - Procedural Sedation *Procedural Sedation Start Time: 00:05 *Procedural Sedation Stop Time: 01:05 *Risks,benefits, and alternative therapies discussed?: Yes *Patient indicates understanding of risk/benefit discussion?: Yes *Indications: fracture/dislocation reduction *Previous Adverse Reaction to Anesthesia/Sedation?: Yes (nausea) Unknown Comment:: nausea * Testing Complete?: No Reason Test Not Complete:: Post-menopausal *ASA Class: I *Mallampati Airway Score: 2 *Time of Last PO Intake: 11:00 Preparation: equipment monitor phototypesetting applied, pulse oximeter, capnometry used, supplemental O2 applied, suction/airway equipment at bedside, IV secured Ketamine: IV Ketamine Dose: 88 IV Propofol Dose (mgs): 88 Complications: none Patient Tolerated Procedure: well <Jesús Way - Last Filed: 04/25/25 07:25> - Orthopedic Joint Reduction Joint #1 Additional Comments: Multiple attempts required to successfully reduce right shoulder (Raudel Machado) - Procedural Sedation Additional Comments: Required 2 attempts for reduction, so continued the sedation period with second dose of both ketamine and propofol for a total of 88mg of each. (Jesús Way) Medical Decision Making <Raudel Machado - Last Filed: 04/25/25 01:47> - EKG Data -: EKG Interpreted by Me <Jesús Way - Last Filed: 04/25/25 07:25> - Medical Decision Making Was pt. sent in by a medical professional or institution (, PA, TRACING LATHE SET UP OPERATOR, urgent care, hospital, or [place] health care facility...) When possible be specific @ -[No] Did you speak to anyone other than the patient for history (EMS, parent, family, police, friend...)? What history was obtained from this source @ -[No] Did you review nursing and triage notes (agree or disagree)? Why? @ -[I reviewed and agree with nursing and triage notes] Were old charts reviewed (outside hosp., previous admission, EMS record, old EK G, old radiological studies, urgent care reports/EKG's, [place] health care facility records)? Report findings @ -[No old charts were reviewed] Differential Diagnosis (chest pain, altered mental status, abdominal pain women, abdominal pain men, vaginal bleeding, weakness, fever, dyspnea, syncope, headache, dizziness, GI bleed, back pain, seizure, CVA, palpatations, mental health, musculoskeletal)? @ -Differential Musculoskeletal Muscular strain, contusion, ligament sprain, fracture, arthritis, septic arthritis, bursitis, cellulitis, muscle spasm, nerve compression, DVT, arterial occlusion, herpes zoster, electrolyte abnormality, tumor.... This is not meant to be in all inclusive list EKG interpreted by me (3pts min.). @ -Not done X-rays interpreted by me (1pt min.). @ -[None done] CT interpreted by me (1pt min.). @ -[None done] U/S interpreted by me (1pt. min.). @ -[None done] What testing was considered but not performed or refused? (CT, X-rays, U/S, labs)? Why? @ -[None] What meds were considered but not given or refused? Why? @ -[None] Did you discuss the management of the patient with other professionals (professionals i.e. , PA, TRACING LATHE SET UP OPERATOR, lab, RT, psych nurse, social services director, cat skinner, teacher, asset protection officer, family caseworker)? Give summary @ -[No] Was smoking cessation discussed for >3mins.? @ -[No] Was critical care preformed (if so, how long)? @ -[No] Were there social determinants of health that impacted care today? How? (Homelessness, low income, unemployed, alcoholism, drug addiction, transportation, low edu. Level, literacy, decrease access to med. care, assisted, rehab)? @ -[No] Was there de-escalation of care discussed even if they declined (Discuss DNR or withdrawal of care, Hospice)? DNR status @ -[No] What co-morbidities impacted this encounter? (DM, HTN, Smoking, COPD, CAD, Canc er, CVA, ARF, Chemo, Hep., AIDS, mental health diagnosis, sleep apnea, morbid obesity)? @ -[None] Was patient admitted / discharged? Hospital course, mention meds given and route, prescriptions, significant lab abnormalities, going to OR and other pertinent info. @ -[hospital course] Undiagnosed new problem with uncertain prognosis? @ -[No] Drug Therapy requiring intensive monitoring for toxicity (Heparin, Nitro, Insulin, Cardizem)? @ -[No] Were any procedures done? @ -Right shoulder reduction performed using procedural sedation with Dr. Way. See procedure note. Diagnosis/symptom? @ -Right shoulder dislocation Acute, or Chronic, or Acute on Chronic? @ -Acute Uncomplicated (without systemic symptoms) or Complicated (systemic symptoms)? @ -Uncomplicated Side effects of treatment? @ -[No] Exacerbation, Progression, or Severe Exacerbation? @ -[No] Poses a threat to life or bodily function? How? (Chest pain, [place], [place], pneumonia, PE, COPD, DKA, ARF, appy, cholecystitis, CVA, Diverticulitis, Homicidal, Suicidal, threat to staff... and all critical care pts) @ -[No] (Raudel Machado) - EKG Data EKG Comments: 12-lead Electrocardiogram Interpretation Note EKG was reviewed and interpreted by myself. 12-lead ECG performed at 2347 is interpreted by me as revealing normal sinus rhythm at a rate of 61 beats per minute. [place] is normal. GA interval is 156 ms, QRS durations 108 ms, QTc is 403 ms.. There were no ST or T wave abnormalities to suggest myocardial ischemia or injury. R wave progression across the precordium was satisfactory. By my interpretation this EKG is non-diagnostic for acute ischemia. (Jesús Way) Disposition Is patient prescribed a controlled substance at d/c from ED?: No Time of Disposition: 00:30 <Raudel Machado - Last Filed: 04/25/25 01:47> <Jesús Way - Last Filed: 04/25/25 07:25> Clinical Impression: Fall, Dislocation of right shoulder joint Disposition: HOME SELF-CARE Condition: Good Instructions (If sedation given, give patient instructions): Shoulder Dislocation (ED), Moderate Sedation (ED) Additional Instructions: Follow-up with orthopedics for ongoing management following shoulder reduction Prescriptions: Lidocaine 4% Patch 1 patch TOPICAL Q24H PRN #10 patch PRN Reason: Pain Ibuprofen [Motrin] 800 mg PO Q8HR PRN #30 tab PRN Reason: Pain Referrals: None,Stated [Primary Care Provider] - 1-2 days [facility] [Provider Group] - 1-2 days [facility] [Provider Group] - 1-2 days
[2025-04-24] MEDS: KETOROLAC 15 MG/ML 1 ML VIAL IM STA (23:24)
[2025-04-24] MEDS: ACETAMINOPHEN TAB 500 MG TAB PO STA (23:28)
[2025-04-24] MEDS: SODIUM CHLORIDE 0.9% 1,000 ML IV ONE (23:28)
[2025-04-25] MEDS: PROPOFOL 10 MG/ML 20 ML VIAL IV STA (00:05)
[2025-04-25] MEDS: KETAMINE 10 MG/ML 20 ML VIAL IV STA (00:06)
--- NOTE | 2025-04-25 00:15 | XR ---
EXAM: XR Right Shoulder Complete, 2 or More Views CLINICAL HISTORY: ITS.REASON XR Reason: Fall onto right arm, unable to abduct arm TECHNIQUE: Two or more views of the right shoulder. COMPARISON: No relevant prior studies available. FINDINGS: Bones/joints: Anterior-inferior shoulder dislocation. Postreduction views recommended. No acute fracture. Soft tissues: Unremarkable. IMPRESSION: Anterior-inferior shoulder dislocation. Postreduction views recommended.
[2025-04-25] MEDS: KETAMINE 10 MG/ML 20 ML VIAL IV ONE (00:35)
[2025-04-25] MEDS: PROPOFOL 10 MG/ML 20 ML VIAL IV ONE (00:45)
--- NOTE | 2025-04-25 01:14 | XR ---
EXAM: XR Right Shoulder Complete, 2 or More Views CLINICAL HISTORY: ITS.REASON XR Reason: post reduction TECHNIQUE: Two or more views of the right shoulder. COMPARISON: No relevant prior studies available. FINDINGS: Bones/joints: Unremarkable. No acute fracture. No dislocation. Soft tissues: Unremarkable. IMPRESSION: No acute fracture.
--- NOTE | 2025-04-25 01:14 | XR ---
EXAM: XR Right Shoulder Complete, one-view CLINICAL HISTORY: ITS.REASON XR Reason: post reduction TECHNIQUE: Single AP view. COMPARISON: No relevant prior studies available. FINDINGS: Bones/joints: Anatomic alignment. No acute fracture. Soft tissues: Unremarkable. IMPRESSION: Anatomic alignment. No acute fracture.
--- NOTE | 2025-04-25 01:28 | XR ---
EXAM: XR Right Shoulder Complete, one-view CLINICAL HISTORY: ITS.REASON XR Reason: post reduction TECHNIQUE: Single AP view of the right shoulder. COMPARISON: No relevant prior studies available. FINDINGS: Bones/joints: Anatomic alignment. No dislocation. No acute fracture. Soft tissues: Unremarkable. IMPRESSION: Anatomic alignment. No dislocation. No acute fracture.
[2025-04-25] MEDS: ONDANSETRON 4 MG/2 ML VIAL IVP STA (01:29)
[2025-04-25 01:56] VITALS: RESP 18
[2025-04-25] MEDS: DIPH,PERTUS(ACELL)TETVAC-LF 0.5 ML VIAL IM ONE (02:06)
[2025-04-25] MEDS: LIDOCAINE 4% PATCH TOPICAL ONE (02:12)
[2025-04-25 02:14] VITALS: BP 134/69; PULSE 65
== END 2025-04-25 02:15 | disposition home or self-care (01) ==
LOC: EC 22:45
DX: S43.004A Unspecified dislocation of right shoulder joint, initial encounter (principal); Z87.891 Personal history of nicotine dependence; Z88.5 Allergy status to narcotic agent; Z23 Encounter for immunization; W01.0XXA Fall on same level from slipping, tripping and stumbling without subsequent striking against object, initial encounter; Y92.410 Unspecified street and highway as the place of occurrence of the external cause
CPT/HCPCS: 93005; 73020 ×2; 90715; 99283; 96361; 96372; 23650; 99152; 99153; 96374; 96375; 90471; L3670; J2405; J1885; J2704